=== PATIENT | male | born 1995 | race Caucasian/White ===

== ENCOUNTER 2021-04-29 10:16 | Emergency (ER) | payer SELFPAY ==
[2021-04-29] MEDS ORDERED: AUGMENTIN 875-1 EACH PO (11:01)
[2021-04-29] MEDS ORDERED: IBUPROFEN800 MG PO (11:01)
== END 2021-04-29 11:13 | disposition home or self-care (01) ==
LOC: ER1 10:16
DX: K02.9 Dental caries, unspecified (principal)
CPT/HCPCS: 96372; 99283; J1885